=== PATIENT | female | born 1945 | race Caucasian/White ===

== ENCOUNTER 2019-11-04 08:17 | Day surgery (SDC) | payer MEDICARE, OTHER ==
[~2019-11-04] VITALS: Ht 156.2 cm; Wt 101.0 kg
[~2019-11-04 08:17] MED LIST: AMLO10TA4 PO; ATEN-105 PO; CABE0.5T PO; HYDR25TA6 PO; INSU100I43 SC; LISI40TA PO
[2019-11-04] MEDS ORDERED: LACTATED RINGERS 1,000 ML IV SCH (08:34)
[2019-11-04 08:42] VITALS: BP 152/84
[2019-11-04] MEDS ORDERED: CHLORHEXIDINE 15 ML UDC ONE (08:56)
[2019-11-04] MEDS ORDERED: CHLORHEXIDINE 15 ML UDC MM ONE (09:00)
[2019-11-04] MEDS ORDERED: LIDOCAINE-MPF 1%, 2ML INFIL ONE (09:00)
[2019-11-04] MEDS ORDERED: FENTANYL PF 100 MCG/2ML ONE (09:36)
[2019-11-04 09:38] LABS: ALANINE AMINOTRANSFERASE 193 U/L (12-78); ALBUMIN 2.9 g/dL (3.4-5.0); ANION GAP 6 mmol/L (5-15); CALCIUM 9.1 mg/dL (8.5-10.1); CHLORIDE 104 mmol/L (98-107)
[2019-11-04 09:42] LABS: ALKALINE PHOSPHATASE 572 U/L (45-117); BILIRUBIN,TOTAL 2.7 mg/dL (0.2-1.0)
[2019-11-04] MEDS ORDERED: LABETALOL 5MG/ML, 20ML IV PRN (10:00)
[2019-11-04] MEDS ORDERED: ONDANSETRON 2MG/ML, 2ML IV PRN (10:00)
[2019-11-04] MEDS ORDERED: PROMETHAZINE 25 MG SUPP PR PRN (10:00)
[2019-11-04] MEDS ORDERED: PROMETHAZINE 25 MG/ML, 1ML IV PRN (10:00)
[2019-11-04] MEDS ORDERED: LORazepam 2 MG/ML, 1ML IVPush PRN (10:00)
[2019-11-04] MEDS ORDERED: OXYcodone 5 MG/5 ML ORAL.SOL UDC PO PRN (10:00)
[2019-11-04] MEDS ORDERED: ACETAMINOPHEN 325 MG TABLET PO PRN (10:00)
[2019-11-04] MEDS ORDERED: hydrALAzine 20 MG/ML, 1ML IV PRN (10:00)
[2019-11-04] MEDS ORDERED: ONDANSETRON ODT 8 MG PO PRN (10:00)
[2019-11-04] MEDS ORDERED: FENTANYL PF 100 MCG/2ML IV PRN (10:00)
[2019-11-04] MEDS ORDERED: LIDOCAINE-MPF 2% ,5ML ONE (10:04)
[2019-11-04] MEDS ORDERED: NEOSTIGMINE 1 MG/ML, 10ML ONE (10:04)
[2019-11-04] MEDS ORDERED: SUCCINYLCHOLINE 20 MG/ML, 10ML ONE (10:04)
[2019-11-04] MEDS ORDERED: DEXAMETHASONE 4 MG/ML, 1ML ONE (10:04)
[2019-11-04] MEDS ORDERED: ROCURONIUM 10MG/ML,5ML ONE (10:04)
[2019-11-04] MEDS ORDERED: ONDANSETRON 2MG/ML, 2ML ONE (10:04)
[2019-11-04] MEDS ORDERED: CEFAZOLIN 1,000 MG ONE (10:04)
[2019-11-04] MEDS ORDERED: GLYCOPYRROLATE 0.2MG/1ML, 5ML ONE (10:04)
[2019-11-04] MEDS ORDERED: PROPOFOL 10 MG/ML, 20ML ONE (10:04)
[2019-11-04] MEDS ORDERED: SUGAMMADEX 200 MG/2 ML IVPush ONE (11:03)
[2019-11-04] MEDS ORDERED: INDOMETHACIN 50 MG SUPP.RECT ONE (11:13)
[2019-11-04] MEDS ORDERED: OMNIPAQUE 350 MG/ML, 50 ML BOTTLE ONE (11:14)
[2019-11-04] MEDS ORDERED: INDOMETHACIN 50 MG SUPP.RECT PR ONE (11:30)
== END 2019-11-04 15:50 | disposition home or self-care (01) ==
LOC: OUT 08:17
PROVIDERS: ATTEND Internal Medicine Geriatric Medicine
DX: K76.89 Other specified diseases of liver (principal); K80.50 Calculus of bile duct without cholangitis or cholecystitis without obstruction; E11.9 Type 2 diabetes mellitus without complications; I10 Essential (primary) hypertension; Z88.2 Allergy status to sulfonamides; Z98.890 Other specified postprocedural states
CPT/HCPCS: 43259; 43264; 43274; 74328; 80053; 82962; 93005; C1769; C1894; C2625; J0330; J0690; J1100; J2405; J2704; J2710; J3010; J7120; Q9967